=== PATIENT | female | born 1940 | race Caucasian/White ===

== ENCOUNTER → 2017-08-01 | Outpatient (CLI) | payer MEDICARE ==
--- NOTE | 2017-08-01 12:32 | MR ---
EXAMINATION TYPE: MR shoulder LT wo con DATE OF EXAM: 08/01/2017 COMPARISON: Outside x-ray dated 07/15/2017 HISTORY: Left shoulder pain TECHNIQUE: Multiplanar, multisequence imaging of the left shoulder is performed without contrast. FINDINGS: There is atrophy of the rotator cuff musculature. There is hypertrophic change of the AC wilton int. Fluid in the subacromial bursa is noted. Rotator cuff: Assessment rotator cuff is limited due to extreme motion artifact. There is a through t hickness tear involving the anterior fibers of the supraspinatus tendon measuring approximately 11 mm at the insertion. No retraction. Findings felt to BE most compatible with a partial through thicknes s tear. There is intrasubstance signal seen within the insertion along the anterior fibers of the infraspinat us tendon compatible with partial intrasubstance tear with no through thickness tear or retraction. Subscapularis tendon is particularly limited due to motion artifact. A trace amount of fluid in the joint space. The joint space appears mildly narrowed. Inferior glenohu meral ligament appears intact. Bicipital tendon is well situated within bicipital groove but there is increased fluid surrounding th e tendon. Intrasubstance signal seen within the tendon within the rotator interval compatible with te ndinosis. Partial split intrasubstance tear in the differential diagnosis. Bony labrum are grossly intact. There is increased signal within the AC joint with arthropathy. This may be related to chronic arthropathy with ligamentous strain. IMPRESSION: 1. Diffuse tendinopathy of the rotator cuff tendons with a partial through thickness tear anterior fi bers supraspinatus tendon measuring 11 mm. 2. Tendinosis and intrasubstance tear insertion anterior fibers infraspinatus tendon. 3. bicipital tendinosis. Intrasubstance signal within the rotator interval is suspicious for tendinos is with intrasubstance split tear. No retraction.
== END | disposition home or self-care (01) ==
LOC: RADMRIMAIN 10:25
PROVIDERS: ATTEND Orthopaedic Surgery
DX: M75.112 Incomplete rotator cuff tear or rupture of left shoulder, not specified as traumatic (principal); M67.814 Other specified disorders of tendon, left shoulder; R93.7 Abnormal findings on diagnostic imaging of other parts of musculoskeletal system

== ENCOUNTER 2017-09-03 07:57 | Day surgery (SDC) | payer MEDICARE ==
[2017-08-28 11:17] VITALS: BMI 40.2
--- NOTE | 2017-09-02 14:05 | HP ---
HISTORY AND PHYSICAL DATE OF SERVICE: 09/03/2017 Martina Conroy is a 77-year-old patient seen with progressive left shoulder pain. Treatment options were discussed with her. She elected to proceed with arthroscopy. Consent was obtained. Medical clearance provided by Dr. Vazquez. PAST MEDICAL HISTORY: Hypertension, hyperlipidemia, asthma, [id number] diabetes. PAST SURGICAL HISTORY: Cholecystectomy, hysterectomy, right knee, right total knee arthroplasty. DAILY MEDICATIONS: 1. Aldactone. 2. Ditropan. 3. Singular. 4. Lipitor. 5. Spiriva. 6. Toprol. 7. Hyzaar. 8. Prilosec. ALLERGIES: Are SULFA, NSAIDS, NICKEL. SOCIAL HISTORY: Patient denies current tobacco use. PHYSICAL EVALUATION OF THE LEFT SHOULDER: Flexion 150 degrees, abduction is 90 degrees, external rotation is 30 degrees with pain and weakness. Tenderness along the anterolateral acromion rotator cuff insertion site. Impingement sign is positive at 70 degrees. Drop-arm sign is positive. Distal neurovascular exam is intact. RADIOGRAPHS OF THE LEFT SHOULDER: Revealed a type 2 anterior acromion and cystic changes of the tuberosity. An MRI of the left shoulder revealed rotator cuff tear, biceps tendinitis versus tear. IMPRESSION: Left shoulder impingement with rotator cuff tear. PLAN: Left shoulder arthroscopy, subacromial decompression, probable arthroscopic rotator cuff repair, probable biceps tenotomy and debridement. MMODL / IJN: [id number] /
[~2017-09-03 07:57] MED LIST: LACTATED RINGERS 1,000 ML IV SCH
[2017-09-03] MEDS ORDERED: fentaNYL (PF) 50 MCG/ML 2 ML AMP ONE ×2 (08:13→10:00)
[2017-09-03] MEDS ORDERED: MIDAZOLAM 2 MG/2 ML VIAL ONE ×2 (08:13→10:00)
[2017-09-03] MEDS ORDERED: ONDANSETRON 4 MG/2 ML VIAL IVP ONE (08:37)
[2017-09-03] MEDS ORDERED: DEXAMETHASONE SOD PHOS (MDV) 100 MG/10 ML VIAL IV ONE (08:37)
[2017-09-03] MEDS ORDERED: LIDOCAINE 1% 20 ML VIAL (10MG/ML) FOR IV START INTRADERMA ONE (08:37)
[2017-09-03 08:38] LABS: Glucose,Whole Blood 134 mg/dL (75-99)
[2017-09-03] MEDS: ceFAZolin IN SWFI 2 GM/20 ML SYRINGE IVP ONE ×2 (09:38→10:11)
--- NOTE | 2017-09-03 09:51 | P.ONQ ---
Anesthesiology Proc Note - PNB - Peripheral Nerve Block Performed Left Interscalene Single Time Out Performed: Yes Procedure Start Time: 09:13 Indication: Acute Post-Operative Pain, Analgesia Specifically requested for management of pain by DrMl: Kennedy Hopkins Sedation Type: Sedate with meaningful contact maintained Preparation: Sterile Prep Position: Supine Catheter: None Needle Types: Other (see comment) (Pajunk) Needle Size: 50mm (2") Needle Gauge: 21 Technique: Ultrasound Injectate: 0.5% Ropivacaine (see comment for volume) (30cc) Blood Aspirated: No Pain Paresthesia on Injection Noted: Yes Resistance on Injection: Normal Events: Other (see comment) (Paresthesia x1 needle repositioned with no further incidents)
[2017-09-03] MEDS ORDERED: LIDOCAINE 1% INJ 10MG/ML (20 ML MDV) ONE (10:00)
[2017-09-03] MEDS ORDERED: PROPOFOL 10 MG/ML 20 ML VIAL IV ONE (10:00)
[2017-09-03] MEDS ORDERED: ePHEDrine SULFATE/0.9% NACL/PF 50 MG/5 ML SYRINGE IV ONE (10:00)
[2017-09-03] MEDS ORDERED: SUCCINYLCHOLINE CHLORIDE 100 MG/5 ML SYR IV ONE (10:00)
[2017-09-03 12:11] VITALS: TEMP 97
--- NOTE | 2017-09-03 12:15 | P.OP ---
Date of Procedure: 09/03/17 Preoperative Diagnosis: Left shoulder impingement Postoperative Diagnosis: 1. Left shoulder rotator cuff tear 2. Left shoulder impingement 3. Left shoulder acromioclavicular joint osteoarthritis 4. Left shoulder partial long head biceps tendon tear 5. Left shoulder labral tear Procedure(s) Performed: 1. Left shoulder arthroscopic rotator cuff repair 2. Left shoulder arthroscopic subacromial decompression 3. Left shoulder arthroscopic Linda procedure 4. Left shoulder arthroscopic biceps tenotomy 5. Left shoulder arthroscopic debridement labral tear Implants: 3-5.5 peek anchors Anesthesia: GETA, regional (Interscalene block) Surgeon: Kennedy Hopkins Building Custodian #1: Orlando Christensen Estimated Blood Loss (ml): 19 Pathology: none sent Condition: stable Disposition: PACU Indications for Procedure: 77-year-old patient seen with progressive left shoulder pain. After treatment options were discussed she elected to proceed with arthroscopy. Operative Findings: See description of procedure Description of Procedure: Patient underwent a shoulder block by department of anesthesia. The patient was then taken to the operative suite. The patient underwent a general anesthetic by the department of anesthesia. The patient was placed into a lateral position and secured. There was appropriate padding of the bony prominence. Left shoulder was then prepped and draped in normal sterile orthopedic fashion. We placed the extremity in 10 pounds of longitudinal traction. A posterior incision was now made for a posterior working portal site. The trocar and cannula were inserted into the glenohumeral joint. Arthroscopy was initiated. Spinal needle was now inserted anteriorly, to ascertain the anterior working portal site. An incision was now made in that area, a trocar was inserted followed by a probe. There was some superficial tearing noted of the superior and anterior labrum. There was partial tearing long head biceps tendon. There were grade 1 chondromalacia changes of the humeral head and grade 1/2 chondral changes of the glenoid with no osteochondral tears. There was no obvious rotator cuff tear visualized from glenohumeral side. There were no loose bodies. I performed an arthroscopic biceps tenotomy. I debrided the labral tears down to stable tissue. The residual labrum was probed and found to be stable. Instruments were now removed from the glenohumeral joint. Utilizing the posterior working portal site, the trocar and cannula were inserted into the subacromial space. Arthroscopy initiated. I made an incision 2 fingerbreadths lateral to the acromion. I introduced my trocar followed by my [employer]throCare ablator. I now began ablating thick subacromial bursal tissue, which exposed the undersurface of the anterior acromion. This was diminished subacromial space. There was a very prominent anterior acromion. A motorized bur was introduced and a subacromial decompression was performed. I also excised some osteophytes off the inferior aspect of the distal clavicle. The AC joint was visualized and noted to be fairly arthritic. Our motorized bur was introduced in the anterior portal site and a Linda procedure was performed without difficulty, decompressing the AC joint nicely. I turned my attention to the rotator cuff. We noted a 2 cm distal supraspinatus rotator cuff tendon tear with no significant retraction. It was easily mobile over the footprint. I abraded the footprint with a motorized bur. I debrided the margins of tendon down to stable tissue. I now passed for everted mattress sutures through good bites of rotator cuff tendon. I crisscrossed the sutures going the tendon over the footprint and introduced 2 lateral anchors. I did note one area of significant dogear posteriorly. I passed 2 loop sutures through good bites of rotator cuff tendon and pulled it down introducing one additional lateral anchor. All suture limbs were clipped. We had a good stable repair compressing the tendon along the footprint very nicely. I injected 1 mL of UCT intra-articular. We now injected along the footprint repair site without difficulty. Instruments now removed from the portal sites. All portal sites were approximated with nylon suture. Sterile dressings were applied followed by a shoulder immobilizer. Barrera SUMMERS assisted with the procedure. The patient was awakened, transferred to a bed, and taken to recovery in stable condition.
[2017-09-03 12:17] LABS: Glucose,Whole Blood 162 mg/dL (75-99)
[2017-09-03 12:50] VITALS: RESP 18
[2017-09-03 13:55] VITALS: BP 155/70; PULSE 75
== END 2017-09-03 15:29 | disposition home or self-care (01) ==
LOC: OR 07:57
PROVIDERS: ATTEND Orthopaedic Surgery
DX: M75.102 Unspecified rotator cuff tear or rupture of left shoulder, not specified as traumatic (principal); M75.42 Impingement syndrome of left shoulder; M19.012 Primary osteoarthritis, left shoulder; S46.112A Strain of muscle, fascia and tendon of long head of biceps, left arm, initial encounter; S43.492A Other sprain of left shoulder joint, initial encounter; X58.XXXA Exposure to other specified factors, initial encounter; M94.212 Chondromalacia, left shoulder; M25.712 Osteophyte, left shoulder; I25.10 Atherosclerotic heart disease of native coronary artery without angina pectoris; I10 Essential (primary) hypertension; I65.23 Occlusion and stenosis of bilateral carotid arteries; I08.3 Combined rheumatic disorders of mitral, aortic and tricuspid valves; J45.909 Unspecified asthma, uncomplicated; K44.9 Diaphragmatic hernia without obstruction or gangrene; K21.9 Gastro-esophageal reflux disease without esophagitis; K76.0 Fatty (change of) liver, not elsewhere classified; E11.43 Type 2 diabetes mellitus with diabetic autonomic (poly)neuropathy; G56.00 Carpal tunnel syndrome, unspecified upper limb; H91.93 Unspecified hearing loss, bilateral; M47.817 Spondylosis without myelopathy or radiculopathy, lumbosacral region; M76.9 Unspecified enthesopathy, lower limb, excluding foot; N95.2 Postmenopausal atrophic vaginitis; N32.81 Overactive bladder; D68.8 Other specified coagulation defects; E78.2 Mixed hyperlipidemia; E66.9 Obesity, unspecified; Z68.41 Body mass index [BMI] 40.0-44.9, adult; E53.8 Deficiency of other specified B group vitamins; I27.20 Pulmonary hypertension, unspecified; Z79.82 Long term (current) use of aspirin; Z79.51 Long term (current) use of inhaled steroids; Z79.84 Long term (current) use of oral hypoglycemic drugs; Z79.899 Other long term (current) drug therapy; Z79.890 Hormone replacement therapy; Z86.711 Personal history of pulmonary embolism; Z88.6 Allergy status to analgesic agent; Z88.2 Allergy status to sulfonamides; Z88.8 Allergy status to other drugs, medicaments and biological substances; Z91.09 Other allergy status, other than to drugs and biological substances
CPT/HCPCS: 64415; 29824; 29826; 29827; C1894; C1713; C1765; J2250; J2405; J2001; J3010; J1100; J0330; J2704; J0690

== ENCOUNTER 2017-09-06 11:48 | Inpatient (IN) | payer MEDICARE ==
[2017-09-06] MEDS ORDERED: RX INFO: IV CONTRAST WAS GIVEN 1 EACH MISC MISCELLANE PRN (12:13)
--- NOTE | 2017-09-06 12:18 | ED ---
SOB HPI - General Chief Complaint: Shortness of Breath Stated Complaint: Difficulty Breathing 3 days post op Time Seen by Provider: 09/06/17 12:04 Source: patient, RN notes reviewed Mode of arrival: ambulatory Limitations: no limitations - History of Present Illness Initial Comments: This is a 77-year-old female with a history of pulmonary emboli bilaterally about a year ago after knee surgery who states she woke up this morning and was very short of breath and with exertional dyspnea. She states it feels similar to when she had her surgery in the past. Of note she had a left shoulder rotator cuff repair done 3 days ago. She denies any fevers chills sweats no overt chest pain no palpitations no other reportable symptoms no other modifying factors. It starts she knows the surgery went well. MD Complaint: shortness of breath - Related Data Home Medications Medication Instructions Recorded Confirmed Atorvastatin [Lipitor] 20 mg PO HS 02/22/14 09/03/17 Losartan [Cozaar] 25 mg PO QAM 02/22/14 09/03/17 Montelukast [Singulair] 10 mg PO HS 02/22/14 09/03/17 Omeprazole [PriLOSEC] 20 mg PO DAILY PRN 02/22/14 09/03/17 Oxybutynin Chloride [Ditropan] 5 mg PO BID 02/22/14 09/03/17 Spironolactone [Aldactone] 25 mg PO QAM 02/22/14 09/03/17 Metoprolol Succinate [Toprol XL] 50 mg PO QAM 03/26/14 09/03/17 Albuterol Nebulized [Ventolin 2.5 mg INHALATION RT-Q6H PRN 05/06/16 09/03/17 Nebulized] Albuterol Sulfate [Proventil Hfa] 2 puff INHALATION RT-Q6H PRN 05/06/16 09/03/17 Aspirin EC [Ecotrin Low Dose] 81 mg PO DAILY 05/06/16 09/03/17 Biotin 5 mg PO DAILY 05/06/16 09/03/17 Cetirizine HCl [Zyrtec] 10 mg PO HS 05/06/16 09/03/17 Multivitamins, Thera [Multivitamin] 1 tab PO DAILY 05/06/16 09/03/17 Acetaminophen [Tylenol Arthritis] 650 mg PO BID 08/28/17 09/03/17 Katarina Allergy (Unknown Dose) 1 tab PO DAILY PRN 08/28/17 09/03/17 Co Q-10 (Unknown Dose) 1 tab PO HS 08/28/17 09/03/17 Cyanocobalamin (Vitamin B-12) 5,000 mcg PO DAILY 08/28/17 09/03/17 [Vitamin B-12] Fluticasone Propionate [Flovent 1 puff INHALATION BID 08/28/17 09/03/17 Hfa 44 mcg] Glucophage 0.5 tab PO QAM 08/28/17 09/03/17 Glucosam/Yuniel-Msm1/C/Jose De Jesus/Bosw 2 each PO QAM 08/28/17 09/03/17 [Glucosamine-Chondroitin Tablet] Magnesium 500 mg PO DAILY 08/28/17 09/03/17 Vitamin E (Dl,Tocopheryl Acet) 400 unit PO DAILY 08/28/17 09/03/17 [Vitamin E] traMADol HCl [Ultram] 25 mg PO BID 08/28/17 09/03/17 traMADol HCl [Ultram] 50 mg PO HS 08/28/17 09/03/17 Previous Rx's Medication Instructions Recorded traMADol HCl [Ultram] 50 mg PO Q6H PRN #40 tab 09/03/17 Allergies Allergy/AdvReac Type Severity Reaction Status Date / Time nickel [Nickel] Allergy Rash/Hives Verified 09/06/17 11:59 Sulfa (Sulfonamide Allergy Rash/Hives Verified 09/06/17 11:59 Antibiotics) NSAIDS (Non-Steroidal AdvReac Nausea & Verified 09/06/17 11:59 Anti-Inflamma Vomiting Review of Systems ROS Statement: Those systems with pertinent positive or pertinent negative responses have been documented in the HPI. ROS Other: All systems not noted in ROS Statement are negative. Past Medical History Past Medical History: Asthma, Cancer, Diabetes Mellitus, GERD/Reflux, Hyperlipidemia, Hypertension, Osteoarthritis (OA), Pulmonary Embolus (PE) Additional Past Medical History / Comment(s): "Leaky aortic valve." Hx cervical cancer 1974, " D-Dimer positive, 3 PE's after last knee surgery. " History of Any Multi-Drug Resistant Organisms: None Reported Past Surgical History: Cholecystectomy, Heart Catheterization, Hysterectomy, Joint Replacement Additional Past Surgical History / Comment(s): Bilateral knee replacements. shoulder Past Anesthesia/Blood Transfusion Reactions: No Reported Reaction Past Psychological History: No Psychological Hx Reported Smoking Status: Never smoker Past Alcohol Use History: Rare Past Drug Use History: None Reported - Past Family History Father Family Medical History: CVA/TIA Mother Family Medical History: Asthma General Exam - General Exam Comments Initial Comments: This is a well-developed well-nourished awake alert oriented 3 female Limitations: no limitations General appearance: alert, anxious Head exam: Present: atraumatic, normocephalic, normal inspection Eye exam: Present: normal appearance, PERRL, EOMI. Absent: scleral icterus, conjunctival injection, periorbital swelling ENT exam: Present: normal exam, mucous membranes moist Neck exam: Present: normal inspection. Absent: tenderness, meningismus, lymphadenopathy Respiratory exam: Present: normal lung sounds bilaterally. Absent: respiratory distress, wheezes, rales, rhonchi, stridor Cardiovascular Exam: Present: normal rhythm, tachycardia, normal heart sounds. Absent: systolic murmur, diastolic murmur, rubs, gallop, clicks GI/Abdominal exam: Present: soft, normal bowel sounds. Absent: distended, tenderness, guarding, rebound, rigid Extremities exam: Present: normal capillary refill, other (Dressings applied to the left shoulder just with list no neurovascular deficits). Absent: tenderness , pedal edema, joint swelling, calf tenderness Back exam: Present: normal inspection Neurological exam: Present: alert, oriented X3, CN II-XII intact Psychiatric exam: Present: normal affect, normal mood Skin exam: Present: warm, dry, intact, normal color. Absent: rash Course Vital Signs 09/06/17 09/06/17 09/06/17 11:56 12:29 13:42 Temperature 98.1 F Pulse Rate 110 H 102 H Respiratory 18 16 16 Rate Blood Pressure 149/72 163/72 O2 Sat by Pulse 95 95 Oximetry - Reevaluation(s) Reevaluation #1: 09/06/17 14:07 Reevaluation patient reveals no change. Medical Decision Making - Medical Decision Making I did discuss findings with the patient she has had no chest pain. No history of recent cardiac problems. Her troponin is elevated she will be admitted and evaluated by a home pain medicine as well as cardiology. I did discuss case with the on-call medical physician Dr. Guzman. - Lab Data Result diagrams: 09/06/17 12:24 09/06/17 12:24 Lab Results 09/06/17 09/06/17 09/06/17 Range/Units 12:24 12:24 12:24 WBC 10.8 H (3.8-10.6) k/uL RBC 4.85 (3.80-5.40) m/uL Hgb 14.2 (11.4-16.0) gm/dL Hct 43.0 (34.0-46.0) % MCV 88.6 (80.0-100.0) fL MCH 29.3 (25.0-35.0) pg MCHC 33.1 (31.0-37.0) g/dL RDW 12.9 (11.5-15.5) % Plt Count 227 (150-450) k/uL Neutrophils % 77 % Lymphocytes % 15 % Monocytes % 5 % Eosinophils % 2 % Basophils % 0 % Neutrophils # 8.3 H (1.3-7.7) k/uL Lymphocytes # 1.7 (1.0-4.8) k/uL Monocytes # 0.6 (0-1.0) k/uL Eosinophils # 0.2 (0-0.7) k/uL Basophils # 0.0 (0-0.2) k/uL PT (9.0-12.0) sec INR (<1.2) APTT (22.0-30.0) sec D-Dimer (<0.60) mg/L FEU Sodium 141 (137-145) mmol/L Potassium 4.0 (3.5-5.1) mmol/L Chloride 102 (98-107) mmol/L Carbon Dioxide 28 (22-30) mmol/L Anion Gap 11 mmol/L BUN 14 (7-17) mg/dL Creatinine 0.72 (0.52-1.04) mg/dL Est GFR (CKD-EPI)AfAm >90 (>60 ml/min/1.73 sqM) Est GFR (CKD-EPI)NonAf 83 (>60 ml/min/1.73 sqM) Glucose 149 H (74-99) mg/dL Calcium 9.9 (8.4-10.2) mg/dL Magnesium 1.7 (1.6-2.3) mg/dL Total Bilirubin 1.0 (0.2-1.3) mg/dL AST 22 (14-36) U/L ALT 25 (9-52) U/L Alkaline Phosphatase 96 (38-126) U/L Total Creatine Kinase 90 (30-135) U/L CK-MB (CK-2) 1.2 (0.0-2.4) ng/mL CK-MB (CK-2) Rel Index 1.3 Troponin I 0.158 H* (0.000-0.034) ng/mL NT-Pro-B Natriuret Pep pg/mL Total Protein 6.7 (6.3-8.2) g/dL Albumin 4.0 (3.5-5.0) g/dL 09/06/17 09/06/17 Range/Units 12:24 12:24 WBC (3.8-10.6) k/uL RBC (3.80-5.40) m/uL Hgb (11.4-16.0) gm/dL Hct (34.0-46.0) % MCV (80.0-100.0) fL MCH (25.0-35.0) pg MCHC (31.0-37.0) g/dL RDW (11.5-15.5) % Plt Count (150-450) k/uL Neutrophils % % Lymphocytes % % Monocytes % % Eosinophils % % Basophils % % Neutrophils # (1.3-7.7) k/uL Lymphocytes # (1.0-4.8) k/uL Monocytes # (0-1.0) k/uL Eosinophils # (0-0.7) k/uL Basophils # (0-0.2) k/uL PT 10.0 (9.0-12.0) sec INR 1.0 (<1.2) APTT 20.9 L (22.0-30.0) sec D-Dimer 16.77 H (<0.60) mg/L FEU Sodium (137-145) mmol/L Potassium (3.5-5.1) mmol/L Chloride (98-107) mmol/L Carbon Dioxide (22-30) mmol/L Anion Gap mmol/L BUN (7-17) mg/dL Creatinine (0.52-1.04) mg/dL Est GFR (CKD-EPI)AfAm (>60 ml/min/1.73 sqM) Est GFR (CKD-EPI)NonAf (>60 ml/min/1.73 sqM) Glucose (74-99) mg/dL Calcium (8.4-10.2) mg/dL Magnesium (1.6-2.3) mg/dL Total Bilirubin (0.2-1.3) mg/dL AST (14-36) U/L ALT (9-52) U/L Alkaline Phosphatase (38-126) U/L Total Creatine Kinase (30-135) U/L CK-MB (CK-2) (0.0-2.4) ng/mL CK-MB (CK-2) Rel Index Troponin I (0.000-0.034) ng/mL NT-Pro-B Natriuret Pep 2780 pg/mL Total Protein (6.3-8.2) g/dL Albumin (3.5-5.0) g/dL - EKG Data -: EKG Interpreted by Me EKG shows normal: sinus rhythm (Sinus tachycardia of 103. Interval 158 QRS 84 QT since QTC 354/463 left exodeviation poor R-wave progression.) - Radiology Data Radiology results: report reviewed (I did review the imaging and reports and did discuss case with radiologist patient does have bilateral pulmonary emboli.) , image reviewed Critical Care Time Critical Care Time: Yes Critical Care Time: 31 minutes of critical care time this included initial presentation with history physical labs x-rays reevaluation of the patient discussed with radiologist discussion with the admitting physician admitting orders and documentation of the above. Disposition Clinical Impression: Pulmonary embolism on left, Pulmonary embolism on right, Elevated troponin Disposition: ADMITTED IP TO THIS [facility] Condition: Stable Referrals: Nonstaff,Physician [REFERRING] - 1-2 days
[2017-09-06 12:43] LABS: Basophils % (A) 0 %; Eosinophils # (A) 0.2 k/uL (0-0.7); Eosinophils % (A) 2 %; HGB 14.2 gm/dL (11.4-16.0); Lymphocytes # (A) 1.7 k/uL (1.0-4.8); Lymphocytes % (A) 15 %; MCH 29.3 pg (25.0-35.0); MCHC 33.1 g/dL (31.0-37.0); MCV 88.6 fL (80.0-100.0); Mean Platelet Volume 7.3; Monocytes # (A) 0.6 k/uL (0-1.0); Monocytes % (A) 5 %; Neutrophils # (A) 8.3 k/uL (1.3-7.7); Neutrophils % (A) 77 %; Platelet Count 227 k/uL (150-450); RBC 4.85 m/uL (3.80-5.40); RDW 12.9 % (11.5-15.5); WBC 10.8 k/uL (3.8-10.6)
[2017-09-06 12:53] LABS: ALT 25 U/L (9-52); AST 22 U/L (14-36); Alkaline Phosphatase 96 U/L (38-126); Anion Gap 11 mmol/L; Blood Urea Nitrogen 14 mg/dL (7-17); Calcium 9.9 mg/dL (8.4-10.2); Carbon Dioxide 28 mmol/L (22-30); Chloride 102 mmol/L (98-107); Glucose 149 mg/dL (74-99); Magnesium 1.7 mg/dL (1.6-2.3); Sodium 141 mmol/L (137-145); Total Protein 6.7 g/dL (6.3-8.2)
[2017-09-06 13:16] LABS: Creatine Kinase MB 1.2 ng/mL (0.0-2.4)
[2017-09-06 13:26] LABS: Troponin I 0.158 ng/mL (0.000-0.034)
--- NOTE | 2017-09-06 13:38 | CT ---
EXAMINATION TYPE: CT angio chest DATE OF EXAM: 09/06/2017 1:27 PM COMPARISON: Previous study dated 03/27/2014. HISTORY: Patient complains of difficulty breathing today. Patient is 3 days post op with history of prior PEs. CT DLP: 519.7 mGycm Automated exposure control for dose reduction was used. CONTRAST: CTA scan of the thorax is performed with IV Contrast, patient injected with 100 mL of Isovue 370, pul monary embolism protocol. . FINDINGS:There is some dependent atelectasis within the dependent portions of the lungs. There is some shotty mediastinal adenopathy. No pathologically enlarged lymph nodes are seen. There are bilateral pulmonary emboli. These are in the first and second order branches on the left an d in the first second and third branches on the right. There is no evidence of right heart strain. The aorta is normal in caliber without evidence of dissection. The heart is mildly enlarged. There is no pleural or pericardial fluid. The gallbladder is been removed. There is a tiny splenule in the hilus of the spleen. There is degenerative disc disease and hypertrophic spondylosis within the spine. IMPRESSION: 1. THIS EXAMINATION IS POSITIVE FOR PULMONARY EMBOLI BILATERALLY. 2. CARDIOMEGALY. 3. DEGENERATIVE CHANGES WITHIN THE SPINE. THIS REPORT WAS PHONED TO DR. PATINO IN THE EMERGENCY ROOM AT THE TIME OF REPORTING.
[2017-09-06 13:40] LABS: D-Dimer 16.77 mg/L FEU (<0.60); Partial Thromboplastin Time 20.9 sec (22.0-30.0)
[2017-09-06] MEDS ORDERED: HEPARIN SODIUM,PORCINE 5,000 UNIT/ML 1 ML VIAL IV STA (14:06)
[2017-09-06] MEDS ORDERED: NALOXONE 0.4 MG/ML 1 ML VIAL IV PRN (14:15)
[2017-09-06] MEDS ORDERED: SODIUM CHLORIDE 0.9% 1,000 ML IV SCH (14:15)
[2017-09-06] MEDS ORDERED: traMADol 50 MG TAB PO PRN (14:17)
[2017-09-06] MEDS ORDERED: PANTOPRAZOLE 40 MG TABLET PO PRN (14:17)
[2017-09-06] MEDS: HEPARIN SOD,PORK IN 0.45% NACL 25,000 UNIT in 0.45% NACL 1 500ML.BAG IV SCH (14:22)
--- NOTE | 2017-09-06 15:43 | P.CNPUL ---
History of Present Illness Consult date: 09/06/17 Requesting physician: Rey Guzman Reason for consult: dyspnea, abnormal CXR/CT Chief complaint: Shortness of breath History of present illness: This is a very pleasant 77-year-old female patient who follows with Dr. Cheng as her primary care physician. She has a history of hypertension, hyperlipidemia, mild intermittent asthma, osteoarthritis. She is a lifelong nonsmoker. Maintained on Singulair and albuterol in the outpatient setting. She also has a history of bilateral pulmonary emboli following a knee surgery approximate 4 years ago. She states she was on Xarelto for one year. She had undergone workup for primary hypercoagulable state by her PCP at that time and reported as negative according to the patient. She was admitted on 09/03/2017 for an elective shoulder surgery. She had undergone a arthroscopic rotator cuff repair, subacromial decompression, Linda procedure, biceps tenotomy and debridement of labral tear all in the left shoulder. She was subsequently discharged home later that same day. Earlier this morning she was up ambulating to the bathroom and developed significant shortness of breath. She felt this was very similar to her previous episode of pulmonary embolism 4 years ago and presented here to the emergency room for the same. EKG showed sinus tachycardia. D-dimer 16.77. ProBNP 2780. Troponin 0.158. CT angiogram did reveal evidence of bilateral pulmonary emboli. Noted cardiomegaly. No mention of right ventricular strain. The patient is seen on the selective care unit and consultation. She is presently awake and alert in no acute distress. She has been hemodynamically stable. Maintaining good O2 saturations in the upper 90s on 2 L/m per nasal cannula. She denies any worsening chest pain, palpitations lightheadedness or dizziness. No significant pain on inhalation. No hemoptysis. Mainly that of dyspnea on minimal exertion. Review of Systems 14 point review of system was conducted. All negative other than as mentioned in the HPI along with surgical site pain in the left shoulder Past Medical History Past Medical History: Asthma, Cancer, Diabetes Mellitus, GERD/Reflux, Hyperlipidemia, Hypertension, Osteoarthritis (OA), Pulmonary Embolus (PE) Additional Past Medical History / Comment(s): "Leaky aortic valve." Hx cervical cancer 1974, " D-Dimer positive, 3 PE's after last knee surgery. " History of Any Multi-Drug Resistant Organisms: None Reported Past Surgical History: Cholecystectomy, Heart Catheterization, Hysterectomy, Joint Replacement Additional Past Surgical History / Comment(s): Bilateral knee replacements. shoulder Past Anesthesia/Blood Transfusion Reactions: No Reported Reaction Past Psychological History: No Psychological Hx Reported Smoking Status: Never smoker Past Alcohol Use History: Rare Past Drug Use History: None Reported - Past Family History Father Family Medical History: CVA/TIA Mother Family Medical History: Asthma Medications and Allergies Home Medications Medication Instructions Recorded Confirmed Type Atorvastatin [Lipitor] 20 mg PO HS 02/22/14 09/06/17 History Losartan [Cozaar] 25 mg PO QAM 02/22/14 09/06/17 History Montelukast [Singulair] 10 mg PO HS 02/22/14 09/06/17 History Omeprazole [PriLOSEC] 20 mg PO DAILY PRN 02/22/14 09/06/17 History Oxybutynin Chloride [Ditropan] 5 mg PO BID 02/22/14 09/06/17 History Spironolactone [Aldactone] 25 mg PO QAM 02/22/14 09/06/17 History Metoprolol Succinate [Toprol XL] 50 mg PO QAM 03/26/14 09/06/17 History Albuterol Nebulized [Ventolin 2.5 mg INHALATION RT-QID PRN 05/06/16 09/06/17 History Nebulized] Albuterol Sulfate [Proventil Hfa] 2 puff INHALATION RT-Q6H PRN 05/06/16 History Aspirin EC [Ecotrin Low Dose] 81 mg PO DAILY 05/06/16 09/06/17 History Biotin 5 mg PO DAILY 05/06/16 09/06/17 History Cetirizine HCl [Zyrtec] 10 mg PO HS 05/06/16 09/06/17 History Multivitamins, Thera [Multivitamin] 1 tab PO DAILY 05/06/16 09/06/17 History Acetaminophen [Tylenol Arthritis] 650 mg PO BID 08/28/17 09/06/17 History Co Q-10 (Unknown Dose) 1 tab PO HS 08/28/17 09/06/17 History Cyanocobalamin (Vitamin B-12) 5,000 mcg PO DAILY 08/28/17 09/06/17 History [Vitamin B-12] Fluticasone Propionate [Flovent 1 puff INHALATION RT-BID 08/28/17 09/06/17 History Hfa 44 mcg] Glucosam/Yuniel-Msm1/C/Jose De Jesus/Bosw 2 tab PO QAM 08/28/17 09/06/17 History [Glucosamine-Chondroitin Tablet] Magnesium 500 mg PO DAILY 08/28/17 09/06/17 History Vitamin E (Dl,Tocopheryl Acet) 400 unit PO DAILY 08/28/17 09/06/17 History [Vitamin E] traMADol HCl [Ultram] 50 mg PO Q6H PRN #40 tab 09/03/17 09/06/17 Rx metFORMIN HCL [Glucophage] 250 mg PO QAM 09/06/17 09/06/17 History Allergies Allergy/AdvReac Type Severity Reaction Status Date / Time nickel [Nickel] Allergy Rash/Hives Verified 09/06/17 14:41 Sulfa (Sulfonamide Allergy Rash/Hives Verified 09/06/17 14:41 Antibiotics) NSAIDS (Non-Steroidal AdvReac Nausea & Verified 09/06/17 14:41 Anti-Inflamma Vomiting Physical Exam Vitals: Vital Signs Temp Pulse Resp BP Pulse Ox 09/06/17 14:25 101 H 16 165/71 98 09/06/17 13:42 102 H 16 163/72 95 09/06/17 12:29 16 09/06/17 11:56 98.1 F 110 H 18 149/72 95 Intake and Output 09/06/17 09/06/17 09/06/17 06:59 14:59 22:59 Other: Weight 99.79 kg GENERAL EXAM: Alert, active, comfortable in no apparent distress. HEAD: Normocephalic. EYES: Normal reaction of pupils, equal size. NOSE: Clear with pink turbinates. THROAT: No erythema or exudates. NECK: No masses, no JVD. CHEST: No chest wall deformity. LUNGS: Equal air entry with no crackles, wheeze, rhonchi or dullness. CVS: S1 and S2 normal with no audible murmur, regular rhythm. ABDOMEN: No hepatosplenomegaly, normal bowel sounds, no guarding or rigidity. SPINE: No scoliosis or deformity SKIN: No rashes CENTRAL NERVOUS SYSTEM: No focal deficits, tone is normal in all 4 extremities. EXTREMITIES: The dressing to the left shoulder. Sling in place. There is no peripheral edema. No clubbing, no cyanosis. Peripheral pulses are intact. Results - Laboratory Findings CBC and BMP: 09/06/17 12:24 09/06/17 12:24 PT/INR, D-dimer PT 10.0 sec (9.0-12.0) 09/06/17 12:24 INR 1.0 (<1.2) 09/06/17 12:24 D-Dimer 16.77 mg/L FEU (<0.60) H 09/06/17 12:24 Abnormal lab findings: Abnormal Labs 09/06/17 09/06/17 09/06/17 12:24 12:24 12:24 WBC 10.8 H Neutrophils # 8.3 H APTT D-Dimer Glucose 149 H Troponin I 0.158 H* 09/06/17 12:24 WBC Neutrophils # APTT 20.9 L D-Dimer 16.77 H Glucose Troponin I - Diagnostic Findings Chest x-ray: image reviewed CT scan - chest: image reviewed Assessment and Plan Assessment: Impression: #1 Acute hypoxic respiratory failure secondary to bilateral pulmonary emboli. #2 Bilateral pulmonary emboli secondary to left shoulder surgery on 09/03/2017. #3 History of bilateral pulmonary emboli following knee surgery in 2013. The patient was and coagulated for 3 weeks. The pulmonary emboli occurred the fourth week. The patient had been worked up for primary hypercoagulable state at that time that were negative according to the patient. #4 Hypertension. #5 Hyperlipidemia. #6 Mild intermittent asthma currently inactive and stable. #7 Osteoarthritis. Plan: The patient was seen and evaluated by Dr. Angel. Computed tomography scan and labs were reviewed. We'll continue with the heparin drip for now. Probably transition to Xarelto in the morning. This is a provoked PE and she would most likely require anticoagulants for 3-6 months. Previous workup for primary hypercoagulable states had been done and was reported as negative. We'll obtain an echocardiogram. Dopplers of the lower extremities as well as the left upper extremity. We'll continue to monitor her closely on the selective care unit. We will continue to follow and make further recommendations based on her clinical status. I, the cosigning physician, performed a history & physical examination of the patient. Lungs sounds are clear. Maintaining good O2 saturations in the 90s on 2 L/m per nasal cannula. I discussed the assessment and plan of care with my nurse practitioner, Radha Haney. I attest to the above note as dictated by her. Time with Patient: Greater than 30
[2017-09-06 17:37] LABS: Glucose,Whole Blood 139 mg/dL (75-99)
--- NOTE | 2017-09-06 18:27 | US ---
EXAMINATION TYPE: US venous doppler duplex LE BI DATE OF EXAM: 09/06/2017 3:23 PM COMPARISON: 03/27/2014 CLINICAL HISTORY: 77-year-old female with Bilateral PE. SIDE PERFORMED: Bilateral TECHNIQUE: The lower extremity deep venous system is examined utilizing real time linear array sonog ivet with graded compression, doppler sonography and color-flow sonography. FINDINGS: VESSELS IMAGED: Common Femoral Vein Deep Femoral Vein Greater Saphenous Vein * Femoral Vein Popliteal Vein Small Saphenous Vein * Proximal Calf Veins (* superficial vessels) Right Leg: Negative for DVT Left Leg: Negative for DVT IMPRESSION: No evidence for DVT within the bilateral lower extremities imaged from the groin to the upper calves.
--- NOTE | 2017-09-06 18:30 | US ---
EXAMINATION TYPE: US venous doppler duplex UE LT DATE OF EXAM: 09/06/2017 COMPARISON: NONE CLINICAL HISTORY: 77-year-old female Bilateral PE, recent left shoulder surgery. SIDE PERFORMED: left Findings: Left Arm: Negative for DVT as able to assess. Exam is technically limited by patient's inability to a bduct arm or externally rotate arm. Brachial Veins are very small. IMPRESSION: Exam limitations as above. To the extent visualized, no evidence for DVT within the left upper extrem ity.
[2017-09-06 18:46] VITALS: BMI 40.1
[2017-09-06] MEDS: ACETAMINOPHEN TAB 325 MG TAB PO SCH (20:37)
[2017-09-06] MEDS: OXYBUTYNIN CHLORIDE 5 MG TAB PO SCH (20:37)
[2017-09-06] MEDS: ALBUTEROL NEBULIZED 2.5 MG/3 ML INHALATION PRN (20:47)
[2017-09-06] MEDS: BUDESONIDE 0.5 MG/2 ML NEBU INHALATION SCH (20:47)
[2017-09-06 20:52] LABS: Glucose,Whole Blood 131 mg/dL (75-99)
[2017-09-06] MEDS ORDERED: LORATADINE 10 MG TAB PO SCH (21:00)
[2017-09-06] MEDS ORDERED: ATORVASTATIN 20 MG TAB PO SCH (21:00)
[2017-09-06] MEDS ORDERED: MONTELUKAST 10 MG TAB PO SCH (21:00)
--- NOTE | 2017-09-06 22:00 | HP ---
HISTORY AND PHYSICAL CHIEF COMPLAINT: A 77-year-old white female with hypertension, dyslipidemia, asthma, osteoarthritis, status post shoulder surgery , shoulder surgery on 09/03/2017. She comes to the hospital with chest pain and shortness of breath. She has had prior pulmonary embolisms after knee operations before. She presents here with the same problem. Apparently the proBNP is 2780, D-dimer is 16.77. CT angiogram: Bilateral pulmonary emboli. The patient is admitted to [facility] care at this time. She has saturations in the upper 90s on 2L. REVIEW OF SYSTEM: Fourteen-point review of systems negative except for mentioned in HPI. PAST MEDICAL HISTORY: Asthma, cancer, diabetes mellitus, GERD, dyslipidemia, hypertension, osteoarthritis, pulmonary embolism. She leaky aortic valve, history of cervical cancer in 1974, PEs after last knee surgery, cholecystectomy, heart catheterization, hysterectomy, joint replacement, bilateral knee replacement, shoulder surgery. SOCIAL HISTORY: Never smoker, rare alcohol, no illicit drugs. FAMILY HISTORY: Father: CVA/TIA. Mother with asthma. HOME MEDICATIONS: 1. Lipitor. 2. Cozaar. 3. Singulair. 4. Prilosec. 5. Ditropan. 6. Aldactone. 7. Toprol-XL. 8. . 9. Ventolin. 10.Zyrtec. 11.Tylenol Arthritis. 12.Coenzyme Q. 13.B12. 14.Fluticasone. 15.Glucosamine. 16.Magnesium. 17.Vitamin E. 18.Tramadol. 19.Metformin. ALLERGIES: SULFA and SAYS NICKEL. VITAL SIGNS: Pulse is in the low 100s, respiratory rate 16-20, blood pressure 140s- 160s over 70s, O2 95% on room air, temp 98.1. HEENT: Alert, in no acute distress. Head: Normocephalic, atraumatic. Ophthalmologic: Pupils equal, round, reactive to light and accommodation. ENT: External ear canals within normal limits. CHEST: No chest wall deformity. LUNGS: No rales, rhonchi or wheeze. CARDIOVASCULAR: S1, S2. Abdomen is soft, nontender. SPINE: No scoliosis. SKIN: No rash, abrasion or bruising. CENTRAL NERVOUS SYSTEM: Cranial nerves are intact. EXTREMITIES: No cyanosis, clubbing or edema. White count is 10.8, hemoglobin is 14.2. D-dimer is 16.77. INR 1.0. CT scan as mentioned above. ASSESSMENT: 1. Acute hypoxemic respiratory failure secondary to bilateral pulmonary emboli, status post left shoulder surgery. 2. Hypertension. 3. Dyslipidemia. 4. Diabetes mellitus. 5. Osteoarthritis. Accu-Chek protocol will be given, heparin drip, Xarelto, or Eliquis in the morning. Ultrasound of legs being done. Continue current medical management. Home medicines will be reordered. MMODL / IJN: [id number] /
[2017-09-07 03:39] LABS: Glucose,Whole Blood 133 mg/dL (75-99)
[2017-09-07 05:20] LABS: Basophils # (A) 0.1 k/uL (0-0.2); Basophils % (A) 1 %; Eosinophils # (A) 0.3 k/uL (0-0.7); Eosinophils % (A) 3 %; HCT 40.1 % (34.0-46.0); HGB 13.3 gm/dL (11.4-16.0); Lymphocytes # (A) 3.4 k/uL (1.0-4.8); Lymphocytes % (A) 41 %; MCH 29.9 pg (25.0-35.0); MCHC 33.2 g/dL (31.0-37.0); Mean Platelet Volume 7.2; Monocytes # (A) 0.4 k/uL (0-1.0); Monocytes % (A) 5 %; Neutrophils # (A) 3.8 k/uL (1.3-7.7); Neutrophils % (A) 47 %; Platelet Count 242 k/uL (150-450); RBC 4.45 m/uL (3.80-5.40); WBC 8.3 k/uL (3.8-10.6)
[2017-09-07] MEDS: HEPARIN SOD,PORK IN 0.45% NACL 25,000 UNIT in 0.45% NACL 1 500ML.BAG IV SCH (05:32)
[2017-09-07 05:52] LABS: Glucose,Whole Blood 116 mg/dL (75-99)
[2017-09-07 06:11] LABS: Anion Gap 11 mmol/L; Blood Urea Nitrogen 12 mg/dL (7-17); Calcium 9.3 mg/dL (8.4-10.2); Carbon Dioxide 26 mmol/L (22-30); Chloride 103 mmol/L (98-107); Glucose 135 mg/dL (74-99); Potassium 4.1 mmol/L (3.5-5.1); Sodium 140 mmol/L (137-145)
[2017-09-07] MEDS: BUDESONIDE 0.5 MG/2 ML NEBU INHALATION SCH (07:58)
[2017-09-07] MEDS: ALBUTEROL NEBULIZED 2.5 MG/3 ML INHALATION PRN (07:58)
[2017-09-07 08:20] VITALS: TEMP 97.1
[2017-09-07] MEDS ORDERED: SPIRONOLACTONE 25 MG TAB PO SCH (09:00)
[2017-09-07] MEDS ORDERED: MAGNESIUM OXIDE 400 MG TAB PO SCH (09:00)
[2017-09-07] MEDS ORDERED: METOPROLOL SUCCINATE (ER) 50 MG TAB.ER.24H PO SCH (09:00)
[2017-09-07] MEDS ORDERED: LOSARTAN 25 MG TAB PO SCH (09:00)
[2017-09-07] MEDS ORDERED: ASPIRIN 81 MG PO SCH (09:00)
--- NOTE | 2017-09-07 10:58 | P.PN ---
Subjective Progress Note Date: 09/07/17 Principal diagnosis: Shortness of breath Progress note dated 09/07/2017 This is a 77-year-old female who was admitted with hypoxemic respiratory failure secondary to bilateral pulmonary emboli. She has a previous history of pulmonary embolism as well. She had left shoulder surgery done this past week. It was done by Dr. Judge. Back in 2013, the patient has a history of bilateral pulmonary emboli following knee surgery. She apparently had an extensive workup for primary hypercoagulable state which is all negative. She does have history of hypertension hyperlipidemia mild intermittent asthma and osteoarthritis. She was started on IV heparin. She is minimally elevated troponin levels and a minimally elevated N-terminal proBNP, consistent with PE. Her d-dimer was quite high. Doppler of the left upper extremity was negative. Dopplers of bilateral lower extremities were negative. I asked for an echocardiogram but it was not done. I told the patient that she should be treated for about 3 months for her provoked pulmonary embolism. She will see me in the office in follow-up. She is feeling well. Her primary doctor may discharge her home today on Xarelto, at 15 mg twice a day for 21 days and then 20 mg a day for a total of 3 months. The patient will need a follow-up computed tomography scan of the chest in about 8-10 weeks. Again, the patient did have a extensive workup for primary hypercoagulable state which was negative. Objective - Vital Signs Vital signs: Vital Signs Temp 97.1 F L 09/07/17 08:15 Pulse 87 09/07/17 08:15 Resp 16 09/07/17 08:15 BP 116/56 09/07/17 08:15 Pulse Ox 97 09/07/17 08:15 Intake & Output 09/06/17 09/07/17 09/07/17 18:59 06:59 18:59 Intake Total 690 471.028 Balance 690 471.028 Weight 99.7 kg 99.7 kg Intake: Intake, IV Titration 190 471.028 Amount Heparin Sod,Pork in 0.45% 110 471.028 NaCl 25,000 unit In 0.45 % NaCl 1 500ml.bag @ 18 UNITS/KG/HR 35.92 mls/hr IV .[id number] [facility] Rx#: [id number] Sodium Chloride 0.9% 1, 80 000 ml @ 20 mls/hr IV . Q24H [facility] Rx#:[id number] Oral 500 Other: Voiding Method Toilet # Voids 3 1 - Exam No acute distress, oriented 3. HEENT examination is grossly unremarkable. Mucous membranes are moist. No oral lesions. Neck supple. Full range of motion. No adenopathy thyromegaly or neck vein distention. Cardiovascular examination reveals regular rhythm rate. S1-S2 normal. No S3 or S4. No discernible murmur noted. Lungs reveal clear breath sounds. Her sounds are equal bilaterally. No adventitious lung sounds including wheezes rhonchi or crackles. Abdomen soft bowel sounds are heard. No masses or tenderness. Extremities are intact. No cyanosis clubbing or edema. Left upper extremity is in a sling. Skin is without rash or lesion. Neurologic examination is brief but nonfocal. - Labs CBC & Chem 7: 09/07/17 05:00 09/07/17 05:00 Labs: Abnormal Lab Results - Last 24 Hours (Table) 09/06/17 09/06/17 09/06/17 Range/Units 12:24 12:24 12:24 WBC 10.8 H (3.8-10.6) k/uL Neutrophils # 8.3 H (1.3-7.7) k/uL APTT (22.0-30.0) sec D-Dimer (<0.60) mg/L FEU Glucose 149 H (74-99) mg/dL POC Glucose (mg/dL) (75-99) mg/dL Troponin I 0.158 H* (0.000-0.034) ng/mL 09/06/17 09/06/17 09/06/17 Range/Units 12:24 17:35 18:02 WBC (3.8-10.6) k/uL Neutrophils # (1.3-7.7) k/uL APTT 20.9 L (22.0-30.0) sec D-Dimer 16.77 H (<0.60) mg/L FEU Glucose (74-99) mg/dL POC Glucose (mg/dL) 139 H (75-99) mg/dL Troponin I 0.346 H* (0.000-0.034) ng/mL 09/06/17 09/06/17 09/07/17 Range/Units 20:49 20:52 00:58 WBC (3.8-10.6) k/uL Neutrophils # (1.3-7.7) k/uL APTT >200.0 H* (22.0-30.0) sec D-Dimer (<0.60) mg/L FEU Glucose (74-99) mg/dL POC Glucose (mg/dL) 131 H (75-99) mg/dL Troponin I 0.250 H* (0.000-0.034) ng/mL 09/07/17 09/07/17 09/07/17 Range/Units 03:29 05:00 05:00 WBC (3.8-10.6) k/uL Neutrophils # (1.3-7.7) k/uL APTT 156.5 H* (22.0-30.0) sec D-Dimer (<0.60) mg/L FEU Glucose 135 H (74-99) mg/dL POC Glucose (mg/dL) 133 H (75-99) mg/dL Troponin I (0.000-0.034) ng/mL 09/07/17 Range/Units 05:50 WBC (3.8-10.6) k/uL Neutrophils # (1.3-7.7) k/uL APTT (22.0-30.0) sec D-Dimer (<0.60) mg/L FEU Glucose (74-99) mg/dL POC Glucose (mg/dL) 116 H (75-99) mg/dL Troponin I (0.000-0.034) ng/mL Assessment and Plan Assessment: Assessment Bilateral pulmonary emboli, following left shoulder surgery Previous episode of bilateral pulmonary emboli following a surgery 2013 Negative evaluation for primary hypercoagulable state History of hypertension Hyperlipidemia Mild intermittent inactive asthma Osteoarthritis Plan: Plan dated 09/07/2017 From my perspective, the patient could be discharged home. We'll allow the primary to make a decision. She should be discharged home on the factor X a inhibitor mentioned above at 20 mg daily after 21 days of 15 mg twice a day. The patient will follow with me in the office. The patient will need a computed tomography scan of the chest down the road probably 8-10 weeks. Additional recommendations and suggestions are forthcoming. I did call the orthopedic surgeon to let him know about is patient here in the hospital. Time with Patient: Less than 30
[2017-09-07] MEDS: ACETAMINOPHEN TAB 325 MG TAB PO SCH (11:03)
[2017-09-07] MEDS ORDERED: RIVAROXABAN 15 MG TAB PO SCH (11:30)
[2017-09-07] MEDS: OXYBUTYNIN CHLORIDE 5 MG TAB PO SCH (11:44)
[2017-09-07 11:48] LABS: Glucose,Whole Blood 198 mg/dL (75-99)
[2017-09-07] MEDS ORDERED: MULTIVITAMINS, THERA 1 EACH TAB PO SCH (12:00)
[2017-09-07 12:13] VITALS: BP 130/69; PULSE 94
[2017-09-07 12:14] VITALS: RESP 18
--- NOTE | 2017-09-07 14:25 | CONS ---
CONSULTATION Mrs. Diaz is a 77-year-old female, who is seen for cardiac evaluation. Patient's medical records were reviewed. This patient recently underwent a left shoulder surgery on Friday and subsequently patient started having symptoms of shortness of breath. She came to the emergency room. The CT angiogram showed evidence of bilateral pulmonary emboli which were kind of segmental; however, there was no right ventricular strain. She is feeling better. The patient did have a mild elevation in the troponin. This patient had a knee surgery about 4 years ago and she did had a pulmonary embolism. At that time, she had was on Xarelto for 1 year. She had a workup for hypercoagulability, which was negative and since then, she has been doing fairly well. The patient is up and about and physically active. The patient has a history of diabetes. She had a cardiac catheterization done in the past, which did not show any significant coronary artery disease. PAST MEDICAL HISTORY: Includes history of diabetes, history of cancer, hyperlipidemia, hypertension, cholecystectomy, hysterectomy and knee replacement. HOME MEDICATIONS: The patient's home medications include Cozaar, Lipitor, Prilosec, Aldactone, Toprol, Zyrtec, vitamin D. PHYSICAL EXAMINATION: At present reveals a 77-year-old female, who does not appear to be in any acute distress. Patient's heart rate is 90 per minute, blood pressure is 130/69 mmHg, oxygen saturation is 93%. Head and ENT examination is negative. Neck is supple. There is no increase in jugular venous pressure. Both the carotid pulses are felt. There is no bruit. Chest is symmetrical. Heart: The PMI is not felt. First and second heart sounds are normal. The lungs are clinically clear to auscultation and percussion. Abdomen is negative. EKG shows normal sinus rhythm with QS pattern in lead 3. The patient has an elevated troponin of 0.346 and 0.250 and marginally elevated BNP level. FINAL IMPRESSION: This patient has evidence of multiple pulmonary emboli following surgery. The patient had similar history in the past. The patient had a prior cardiac catheterization which revealed normal coronary arteries. The patient had present remains hemodynamically stable. She is getting Xarelto 15 mg b.i.d., we will continue that and I would recommend to stop the aspirin in view that the patient does not have any history of coronary artery disease and we will review the echo and Doppler study. A Heme-Onc consultation may be obtained to consider long-term treatment with anticoagulation. I do not know the details about the patient's underlying cancer. MMODL / IJN: [id number] /
--- NOTE | 2017-09-07 15:50 | ECHOF ---
Referral Reason:Large bilateral PE MEASUREMENTS -------- HEIGHT: 157.5 cm WEIGHT: 99.8 kg BP: 165/71 RVIDd: 3.2 cm (< 3.3) IVSd: 1.3 cm (0.6 - 1.1) LVIDd: 2.8 cm (3.9 - 5.3) LVPWd: 1.4 cm (0.6 - 1.1) IVSs: 1.4 cm LVIDs: 2.2 cm LVPWs: 1.8 cm LAESV Index (A-L): 21.75 ml/m Ao Diam: 2.9 cm (2.0 - 3.7) AV Cusp: 1.9 cm (1.5 - 2.6) LA Diam: 3.6 cm (2.7 - 3.8) MV E Dank: 0.47 m/s MV DecT: 198 ms MV A Dank: 0.93 m/s MV E/A Ratio: 0.51 RAP: 10.00 mmHg RVSP: 77.16 mmHg FINDINGS -------- Resting tachycardia (HR>100bpm). This was a technically adequate study. The left ventricular size is normal. There is mild concentric left ventricular hypertrophy. Overa ll left ventricular systolic function is low-normal with, an EF between 50 - 55 %. The right ventricle is mildly enlarged. The right ventricular systolic function is moderately impai red. The right ventricular septal wall is flattened in systole which is consistent with right vent ricular pressure overload. Normal LA size by volume 22+/-6 ml/m2. RA appears enlarged. The aortic valve is trileaflet, and appears structurally normal. No aortic stenosis or regurgitation. Mild mitral annular calcification present. Mild mitral regurgitation is present. [id number] tricuspid regurgitation present. There is severe pulmonary hypertension. The rig ht ventricular systolic pressure, as measured by Doppler, is 77.16mmHg. The pulmonic valve was not well visualized. The aortic root size is normal. Normal inferior vena cava with less than 50% inspiratory collapse consistent with estimated right atr ial pressure of 15 mmHg. There is no pericardial effusion. CONCLUSIONS -------- 1. Resting tachycardia (HR>100bpm). 2. This was a technically adequate study. 3. The left ventricular size is normal. 4. There is mild concentric left ventricular hypertrophy. 5. Overall left ventricular systolic function is low-normal with, an EF between 50 - 55 %. 6. The right ventricle is mildly enlarged. 7. The right ventricular septal wall is flattened in systole which is consistent with right ventricu lar pressure overload. 8. Normal LA size by volume 22+/-6 ml/m2. 9. RA appears enlarged. 10. The aortic valve is trileaflet, and appears structurally normal. No aortic stenosis or regurgitat ion. 11. Mild mitral annular calcification present. 12. Mild mitral regurgitation is present. 13. Tjif-ke-cbpstbsf tricuspid regurgitation present. 14. There is severe pulmonary hypertension. 15. The right ventricular systolic pressure, as measured by Doppler, is 77.16mmHg. 16. The pulmonic valve was not well visualized. 17. The aortic root size is normal. 18. Normal inferior vena cava with less than 50% inspiratory collapse consistent with estimated right atrial pressure of 15 mmHg. 19. There is no pericardial effusion. [employer]ENT: Gomez Allen RDCS
== END 2017-09-07 14:59 | disposition home or self-care (01) | DRG 175 ==
LOC: EC 11:48 → 6SEL 14:15
PROVIDERS: ADMIT Family Medicine; ATTEND Family Medicine
DX: I26.99 Other pulmonary embolism without acute cor pulmonale (principal); J96.01 Acute respiratory failure with hypoxia; E11.9 Type 2 diabetes mellitus without complications; I11.9 Hypertensive heart disease without heart failure; J45.20 Mild intermittent asthma, uncomplicated; E78.5 Hyperlipidemia, unspecified; K21.9 Gastro-esophageal reflux disease without esophagitis; M19.91 Primary osteoarthritis, unspecified site; Z79.84 Long term (current) use of oral hypoglycemic drugs; Z79.82 Long term (current) use of aspirin; Z79.51 Long term (current) use of inhaled steroids; Z79.899 Other long term (current) drug therapy; Z90.710 Acquired absence of both cervix and uterus; Z85.41 Personal history of malignant neoplasm of cervix uteri; Z90.49 Acquired absence of other specified parts of digestive tract; Z96.653 Presence of artificial knee joint, bilateral; Z96.612 Presence of left artificial shoulder joint; Z86.711 Personal history of pulmonary embolism; Z88.2 Allergy status to sulfonamides; Z88.8 Allergy status to other drugs, medicaments and biological substances; Z91.048 Other nonmedicinal substance allergy status; Z82.5 Family history of asthma and other chronic lower respiratory diseases
CPT/HCPCS: 36415; 71275; 80048; 80053; 82550; 82553; 83735; 83880; 84484; 85025; 85379; 85610; 85730; 93005; 93306; 93970; 94640; 96374; 99291

== ENCOUNTER → 2017-10-29 | Outpatient (CLI) | payer MEDICARE ==
[2017-10-29 10:31] LABS: Blood Urea Nitrogen 13 mg/dL (7-17)
--- NOTE | 2017-10-29 12:35 | CT ---
EXAMINATION TYPE: CT angio chest DATE OF EXAM: 10/29/2017 COMPARISON: 09/06/2017 HISTORY: 77-year-old female SOB, bilateral PE follow up TECHNIQUE: Contiguous axial scanning of the chest performed with IV Contrast, patient injected with 1 00 mL of Isovue 370. Coronal/sagittal MIP reconstructions performed. CT DLP: 539 mGycm Automated exposure control for dose reduction was used. FINDINGS: Heart is normal size without pericardial effusion. No reflux of contrast into the IVC or hepatic vein s. RV LV ratio is less than 0.9. Coronary vessel calcifications are present and are a marker for lilo nary artery disease. Aorta normal caliber with a bovine configuration to the arch. AP window lymph node is mildly enlarged at 1.2 cm but stable from 08/29/2017. Prominent 1.3 cm subcari nal lymph node. 9 mm right hilar and 1.1 cm left hilar lymph nodes. Findings probably reactive/post i nflammatory. Satisfactory opacification of the ventricle system. Interval clearance of the previous bilateral exte nsive pulmonary emboli. Strandy bibasilar areas of atelectasis. No consolidation or pleural effusion. Redemonstrated 2.6 cm right upper pole renal cyst. A couple punctate calcifications within the visual ized liver likely relating to prior granulomatous disease. Calcified granuloma in spleen. Hilar splen ule. Bones: Degenerative disc disease throughout the thoracic spine with scoliosis. IMPRESSION: 1. INTERVAL CLEARANCE OF THE EXTENSIVE BILATERAL PULMONARY EMBOLI SEEN ON 09/06/2017. 2. A FEW PROMINENT TO MILDLY ENLARGED MEDIASTINAL AND HILAR LYMPH NODES LIKELY REACTIVE/POST INFLAMMA TORY.
== END | disposition home or self-care (01) ==
LOC: RADCTMAIN 10:00
PROVIDERS: ATTEND Internal Medicine Critical Care Medicine
DX: I26.99 Other pulmonary embolism without acute cor pulmonale (principal); R59.0 Localized enlarged lymph nodes
CPT/HCPCS: 82565; 84520; 71275; 36415; Q9967